=== PATIENT | male | born 1975 | race Caucasian/White ===

== ENCOUNTER 2018-04-05 10:41 | Emergency (ER) | payer SELFPAY ==
--- NOTE | 2018-04-05 11:22 | RAD ---
PA CHEST: Date: 04/05/18 HISTORY: Weakness. FINDINGS: Lung beyer are clear. Heart and mediastinum appear normal. Vasculature is normal. IMPRESSION: Unremarkable chest. POS: [facility]
[2018-04-05 11:26] LABS: #Eosinphils 0.1 thou/uL (0.0-0.7); #Lymphocytes 1.5 thou/uL (1.20-3.40); #Monocytes 0.8 thou/uL (0.11-0.59); %Basophils 0.2 % (0.0-1.0); %Eosinophils 0.8 % (0.0-10.0); %Lymphocytes 9.5 % (21.0-51.0); %Monocytes 5.1 % (0.0-10.0); %Neutrophils 84.5 % (42.0-75.0); Hemoglobin 15.9 g/dL (14.0-18.0); Mean Corpuscular HGB CONC 33.9 g/dL (32.0-36.0); Mean Corpuscular Hemoglobin 31.6 pg (27.0-31.0); Mean Corpuscular Volume 93.3 fl (80.0-94.0); Mean Platelet Volume 6.2 fL (7.4-10.4); Platelet Count 302 thou/uL (130-400); RBC Distribution Width 12.2 % (11.5-14.5); Red Blood Cell (RBC) Count 5.02 mill/uL (4.70-6.10); White Blood Cell (WBC) Count 15.4 thou/uL (4.8-10.8)
[2018-04-05 11:52] LABS: ALT (SGPT) 23 U/L (8-55); AST (SGOT) 17 U/L (5-34); Albumin 4.7 g/dL (3.5-5.0); Alkaline Phosphatase 56 U/L (40-150); Anion Gap 12 mmol/L (10-20); BUN (Urea Nitrogen) 11 mg/dL (8.9-20.6); Bilirubin, Total 0.8 mg/dL (0.2-1.2); Calc. Creatinine Clearance 0 mL/min (70-130); Calcium 9.5 mg/dL (7.8-10.44); Carbon Dioxide 25 mmol/L (22-29); Chloride 106 mmol/L (98-107); Estimated GFR-MDRD 85; Globulin 2.9 g/dL (2.4-3.5); Glucose 94 mg/dL (70-105); Potassium 4.2 mmol/L (3.5-5.1); Protein, Total 7.6 g/dL (6.0-8.3); Sodium 139 mmol/L (136-145)
[2018-04-05 12:11] LABS: CKMB 0.5 ng/mL (0-6.6); Troponin I Less than 0.010 ng/mL (< 0.028)
[2018-04-05] MEDS ORDERED: Ketorolac Tromethamine 30 MG/ML VIAL ONE (13:25)
[2018-04-05] MEDS ORDERED: Acetaminophen 500 MG TAB ONE (13:25)
--- NOTE | 2018-04-05 13:45 | CT ---
CT HEAD WITHOUT CONTRAST: Date: 04/05/18 Multiple axial tomograms obtained through the head without IV enhancement. HISTORY: Weakness and dizziness. FINDINGS: Ventricles have normal size and position. No evidence of intracranial mass, hemorrhage, or infarct id entified. IMPRESSION: No acute abnormality. POS: [id number]
== END 2018-04-05 14:10 | disposition home or self-care (01) ==
LOC: ERS 10:41
DX: E86.0 Dehydration (principal); R51 Headache; F17.210 Nicotine dependence, cigarettes, uncomplicated
CPT/HCPCS: 70450; 71045; 80053; 82553; 84484; 85025; 93005; 96361; 96374; J1885

== ENCOUNTER 2023-07-03 15:31 | Inpatient (IN) | payer OTHER, SELFPAY ==
[~2023-07-03 15:31] MED LIST: Iopamidol-370 76% 500 ML MDV (1 ML CHARGE) ONE
[2023-07-03] MEDS ORDERED: Ondansetron PF 4 MG/2 ML Vial ONE ×2 (15:43→19:07)
[2023-07-03] MEDS ORDERED: CEFAZOLIN 2 GM VIAL ONE (15:43)
[2023-07-03] MEDS ORDERED: Morphine 4 MG/ML VIAL ONE (15:43)
[2023-07-03] MEDS ORDERED: Boostrix 0.5 ML (Tdap) VIAL (>/=7 yrs of age) ONE (15:43)
[2023-07-03 15:59] LABS: #Basophils 0.1 thou/uL (0.0-0.2); #Eosinphils 0.2 thou/uL (0.0-0.7); #Monocytes 1.1 thou/uL (0.11-0.59); #Neutrophils 12.7 thou/uL (1.40-6.50); %Basophils 0.6 % (0.0-1.0); %Lymphocytes 8.8 % (21.0-51.0); %Neutrophils 81.6 % (42.0-75.0); Hemoglobin 14.3 g/dL (14.0-18.0); Mean Corpuscular HGB CONC 32.5 g/dL (32.0-36.0); Mean Corpuscular Hemoglobin 30.8 pg (27.0-31.0); Mean Corpuscular Volume 94.6 fl (78.0-98.0); Mean Platelet Volume 8.9 fL (7.4-10.4); Platelet Count 270 10x3/uL (130-400); RBC Distribution Width 13.7 % (11.5-14.5); Red Blood Cell (RBC) Count 4.65 mill/uL (4.70-6.10); White Blood Cell (WBC) Count 15.6 10x3/uL (4.8-10.8)
[2023-07-03 16:20] LABS: ALT (SGPT) 36 U/L (8-55); AST (SGOT) 22 U/L (5-34); Albumin 3.8 g/dL (3.5-5.0); Alkaline Phosphatase 68 U/L (40-110); Anion Gap 12 mmol/L (10-20); BUN (Urea Nitrogen) 12 mg/dL (8.9-20.6); Bilirubin, Total 0.2 mg/dL (0.2-1.2); Calc. Creatinine Clearance 0 mL/min (70-130); Calcium 8.7 mg/dL (7.8-10.44); Carbon Dioxide 22 mmol/L (22-29); Chloride 110 mmol/L (98-107); Estimated GFR 98; Globulin 2.8 g/dL (2.4-3.5); Glucose 95 mg/dL (70-105); Potassium 4.1 mmol/L (3.5-5.1); Protein, Total 6.6 g/dL (6.0-8.3); Sodium 140 mmol/L (136-145)
[2023-07-03] MEDS ORDERED: fentaNYL 50 mcg/mL 1 mL Vial ONE (16:33)
[2023-07-03] MEDS ORDERED: HYDROmorphone 0.5 MG/0.5 ML SYRINGE ONE ×2 (16:44→16:55)
[2023-07-03] MEDS ORDERED: Ipratropium/Albuterol 3 ML NEB NEB PRN (16:46)
[2023-07-03] MEDS ORDERED: Ondansetron PF 4 MG/2 ML Vial IVP PRN (16:46)
[2023-07-03] MEDS ORDERED: Morphine 2 MG/ML VIAL SLOW IVP PRN (16:46)
[2023-07-03] MEDS ORDERED: Morphine 4 MG/ML VIAL SLOW IVP PRN (16:46)
[2023-07-03] MEDS ORDERED: Sodium Chloride 0.9% 1,000 ML IV SCH (17:00)
[2023-07-03] MEDS ORDERED: traMADol HCl 50 MG TAB PO PRN (17:21)
[2023-07-03] MEDS ORDERED: CEFAZOLIN 2 GM in Sodium Chloride 0.9% 100 ML IVPB SCH (17:30)
[2023-07-03] MEDS ORDERED: Fentanyl 250 MCG/5 ML VIAL ONE (18:31)
[2023-07-03] MEDS ORDERED: Dexmedetomidine 200 MCG/2 ML VIAL ONE (18:31)
[2023-07-03] MEDS ORDERED: SUGAMMADEX SODIUM 200 MG/2 ML VIAL ONE (18:31)
[2023-07-03] MEDS ORDERED: Dexamethasone 20 MG/5 ML VIAL ONE (19:07)
[2023-07-03] MEDS ORDERED: Lidocaine 1% PF 5 ML VIAL ONE (19:07)
[2023-07-03] MEDS ORDERED: Glycopyrrolate 0.2 MG/ML 5 ML SYRINGE ONE (19:07)
[2023-07-03] MEDS ORDERED: PROPOFOL 200 MG/20 ML VIAL ONE (19:07)
[2023-07-03] MEDS ORDERED: Succinylcholine 200 MG/10 ml SYRINGE FS ONE (19:07)
[2023-07-03] MEDS ORDERED: NEOSTIGMINE 3 MG/3 ML SYR 3 MG/3 ML SYRINGE ONE (19:07)
[2023-07-03] MEDS ORDERED: Metoclopramide HCl 10 MG/2 ML VIAL ONE (19:07)
[2023-07-03] MEDS ORDERED: Rocuronium Bromide 10 MG/ML (10ML VIAL) ONE (19:07)
[2023-07-03] MEDS ORDERED: Vancomycin 1 GM VIAL ONE (19:44)
[2023-07-03] MEDS ORDERED: CEFAZOLIN 1 GM VIAL SLOW IVP SCH (22:00)
[2023-07-03] MEDS: traMADol HCl 50 MG TAB PO SCH ×2 (22:24→23:02)
[2023-07-03] MEDS: Acetaminophen 325 MG TAB PO SCH ×2 (22:25→23:02)
[2023-07-03] MEDS: Sodium Chloride 0.9% 1,000 ML IV SCH (22:34)
[2023-07-03] MEDS: Famotidine/PF 20 mg/2ml Vial SLOW IVP SCH (22:34)
[2023-07-03] MEDS: CEFAZOLIN 2 GM in Sodium Chloride 0.9% 100 ML IVPB SCH (22:35)
[2023-07-03] MEDS: Famotidine 20 MG TAB PO SCH (22:35)
[2023-07-03 22:53] VITALS: BMI 39.6
[2023-07-04] MEDS: Sodium Chloride 0.9% 1,000 ML IV SCH ×2 (01:30→05:11)
[2023-07-04 02:05] LABS: Amphetamine Not Detected (NotDetected); Barbiturates Screen Not Detected (NotDetected); Benzodiazepine Screen Not Detected (NotDetected); Cocaine Metabolite Screen Not Detected (NotDetected); Methadone Not Detected (NotDetected); Methamphetamine Detected (NotDetected); Opiate Screen Detected (NotDetected); Oxycodone Screen Not Detected (NotDetected); Phencyclidine (PCP) Not Detected (NotDetected); THC/Cannabinoid Screen Detected (NotDetected); Tricyclic Screen Not Detected (NotDetected)
[2023-07-04] MEDS: traMADol HCl 50 MG TAB PO SCH ×4 (05:07→23:03)
[2023-07-04] MEDS: Acetaminophen 325 MG TAB PO SCH ×4 (05:07→23:03)
[2023-07-04] MEDS: CEFAZOLIN 2 GM in Sodium Chloride 0.9% 100 ML IVPB SCH ×3 (05:09→21:08)
[2023-07-04 06:34] LABS: #Monocytes 0.9 thou/uL (0.11-0.59); #Neutrophils 17.5 thou/uL (1.40-6.50); %Basophils 0.1 % (0.0-1.0); %Lymphocytes 5.1 % (21.0-51.0); %Monocytes 4.8 % (0.0-10.0); %Neutrophils 89.5 % (42.0-75.0); Hematocrit 37.9 % (42.0-52.0); Hemoglobin 12.1 g/dL (14.0-18.0); Mean Corpuscular HGB CONC 31.9 g/dL (32.0-36.0); Mean Corpuscular Hemoglobin 30.3 pg (27.0-31.0); Mean Corpuscular Volume 94.8 fl (78.0-98.0); Mean Platelet Volume 9.5 fL (7.4-10.4); Platelet Count 239 10x3/uL (130-400); RBC Distribution Width 13.7 % (11.5-14.5); White Blood Cell (WBC) Count 19.5 10x3/uL (4.8-10.8)
[2023-07-04 06:52] LABS: Anion Gap 12 mmol/L (10-20); BUN (Urea Nitrogen) 7 mg/dL (8.9-20.6); Calc. Creatinine Clearance 159 mL/min (70-130); Calcium 8.2 mg/dL (7.8-10.44); Carbon Dioxide 21 mmol/L (22-29); Chloride 108 mmol/L (98-107); Estimated GFR 98; Glucose 161 mg/dL (70-105); Potassium 4.2 mmol/L (3.5-5.1); Sodium 137 mmol/L (136-145)
[2023-07-04] MEDS: Famotidine 20 MG TAB PO SCH ×2 (08:29→21:06)
[2023-07-04] MEDS: Famotidine/PF 20 mg/2ml Vial SLOW IVP SCH ×2 (08:29→21:07)
[2023-07-04] MEDS ORDERED: Cyclobenzaprine 10 MG TAB PO PRN (09:51)
[2023-07-04] MEDS ORDERED: Ketorolac Tromethamine 30 MG/ML VIAL IVP SCH (10:00)
[2023-07-04] MEDS: Ketorolac Tromethamine 30 MG/ML VIAL IVP SCH ×3 (12:47→23:03)
[2023-07-05] MEDS: Acetaminophen 325 MG TAB PO SCH ×2 (06:21→11:55)
[2023-07-05] MEDS: Ketorolac Tromethamine 30 MG/ML VIAL IVP SCH (06:21)
[2023-07-05] MEDS: CEFAZOLIN 2 GM in Sodium Chloride 0.9% 100 ML IVPB SCH (06:21)
[2023-07-05] MEDS: traMADol HCl 50 MG TAB PO SCH ×2 (06:21→11:55)
[2023-07-05 07:35] LABS: #Eosinphils 0.1 thou/uL (0.0-0.7); #Monocytes 1.6 thou/uL (0.11-0.59); #Neutrophils 13.8 thou/uL (1.40-6.50); %Basophils 0.2 % (0.0-1.0); %Eosinophils 0.3 % (0.0-10.0); %Lymphocytes 12.5 % (21.0-51.0); %Monocytes 8.9 % (0.0-10.0); %Neutrophils 77.4 % (42.0-75.0); Hemoglobin 11.3 g/dL (14.0-18.0); Mean Corpuscular HGB CONC 32.3 g/dL (32.0-36.0); Mean Corpuscular Hemoglobin 30.8 pg (27.0-31.0); Mean Corpuscular Volume 95.4 fl (78.0-98.0); Mean Platelet Volume 9.5 fL (7.4-10.4); Platelet Count 240 10x3/uL (130-400); RBC Distribution Width 13.9 % (11.5-14.5); Red Blood Cell (RBC) Count 3.67 mill/uL (4.70-6.10); White Blood Cell (WBC) Count 17.8 10x3/uL (4.8-10.8)
[2023-07-05] MEDS: Famotidine 20 MG TAB PO SCH (09:23)
[2023-07-05] MEDS ORDERED: Cephalexin 250 MG CAP PO SCH (12:00)
[2023-07-05 12:56] VITALS: BP 104/69; TEMP 97.9
== END 2023-07-05 15:25 | disposition home or self-care (01) | DRG 494 ==
LOC: ERS 15:31 → SURG A 16:48
PROVIDERS: ADMIT Student in an Organized Health Care Education/Training Program; ATTEND Student in an Organized Health Care Education/Training Program
PROC: 0PSF04Z Reposition Right Humeral Shaft with Internal Fixation Device, Open Approach (ICD-10-PCS; principal; 2023-07-03)
DX: S42.401B Unspecified fracture of lower end of right humerus, initial encounter for open fracture (principal); F17.210 Nicotine dependence, cigarettes, uncomplicated; V49.88XA Car occupant (driver) (passenger) injured in other specified transport accidents, initial encounter
CPT/HCPCS: 36415; 70450; 71045; 71260; 72125; 72170; 74177; 80048; 80053; 80306; 83605; 85025; 86850; 86900; 86901; 90715; 93005; 96374; 96375; C1713; G0390; J1100; J1170; J1885; J2270; J2272; J2405; J2704; J2765; J3010; J3370; J3490; J7050; Q9967; S0028

== ENCOUNTER 2023-07-07 11:23 | Emergency (ER) | payer SELFPAY | END 2023-07-07 12:23 | disposition home or self-care (01) | LOC: ERS 11:23 | DX: R60.0 Localized edema (principal); F17.210 Nicotine dependence, cigarettes, uncomplicated | CPT/HCPCS: 99283 ==

== ENCOUNTER 2023-07-26 10:56 | Emergency (ER) | payer SELFPAY ==
[2023-07-26] MEDS ORDERED: Cefepime 2 GM VIAL ONE (11:34)
[2023-07-26] MEDS ORDERED: Vancomycin 1.5 GRAM/300 ML BAG 1.5 GM in Premix Bag 1 BAG IVPB SCH (11:45)
[2023-07-26 11:47] LABS: #Basophils 0.1 thou/uL (0.0-0.2); #Eosinphils 0.2 thou/uL (0.0-0.7); #Monocytes 0.7 thou/uL (0.11-0.59); #Neutrophils 5.1 thou/uL (1.40-6.50); %Eosinophils 2.1 % (0.0-10.0); %Lymphocytes 23.4 % (21.0-51.0); %Monocytes 8.4 % (0.0-10.0); %Neutrophils 64.1 % (42.0-75.0); Hematocrit 47.1 % (42.0-52.0); Hemoglobin 15.1 g/dL (14.0-18.0); Mean Corpuscular HGB CONC 32.1 g/dL (32.0-36.0); Mean Corpuscular Volume 93.5 fl (78.0-98.0); Mean Platelet Volume 9.5 fL (7.4-10.4); Platelet Count 357 10x3/uL (130-400); RBC Distribution Width 13.8 % (11.5-14.5); Red Blood Cell (RBC) Count 5.04 mill/uL (4.70-6.10)
[2023-07-26 13:13] LABS: Calcium 9.1 mg/dL (7.8-10.44); Chloride 109 mmol/L (98-107); Potassium 4.7 mmol/L (3.5-5.1); Sodium 136 mmol/L (136-145)
[2023-07-26 13:14] LABS: Globulin 3.2 g/dL (2.4-3.5); Glucose 88 mg/dL (70-105); Protein, Total 7.2 g/dL (6.0-8.3)
[2023-07-26 13:15] LABS: Anion Gap 13 mmol/L (10-20); Carbon Dioxide 19 mmol/L (22-29)
[2023-07-26 13:16] LABS: Bilirubin, Total 0.4 mg/dL (0.2-1.2)
[2023-07-26 13:17] LABS: Alkaline Phosphatase 76 U/L (40-110); Calc. Creatinine Clearance 0 mL/min (70-130); Estimated GFR 109
[2023-07-26 13:18] LABS: BUN (Urea Nitrogen) 12 mg/dL (8.9-20.6)
[2023-07-26 13:19] LABS: AST (SGOT) 20 U/L (5-34)
[2023-07-26 13:20] LABS: ALT (SGPT) 27 U/L (8-55)
== END 2023-07-26 15:55 | disposition home or self-care (01) ==
LOC: ERS 10:56
DX: T81.41XA Infection following a procedure, superficial incisional surgical site, initial encounter (principal); F17.210 Nicotine dependence, cigarettes, uncomplicated
CPT/HCPCS: 36415; 80053; 83605; 85025; 87040; 96365; 96367; J0692; J3370

== ENCOUNTER 2024-12-06 19:37 | Emergency (ER) | payer SELFPAY ==
[2024-12-06 20:13] LABS: #Basophils 0.06 10x3/uL (0.0-0.2); %Basophils 0.7 % (0.0-1.0); %Eosinophils 1.2 % (0.0-10.0); %Lymphocytes 20.1 % (21.0-51.0); %Monocytes 7.5 % (0.0-10.0); %Neutrophils 70.1 % (42.0-75.0); Hematocrit 47.7 % (42.0-52.0); Hemoglobin 15.7 g/dL (14.0-18.0); Mean Corpuscular HGB CONC 32.9 g/dL (32.0-36.0); Mean Corpuscular Hemoglobin 30.2 pg (27.0-31.0); Mean Corpuscular Volume 91.7 fL (78.0-98.0); Mean Platelet Volume 9.3 fL (7.4-10.4); Platelet Count 258 10x3/uL (130-400); RBC Distribution Width 13.2 % (11.5-14.5)
[2024-12-06 20:27] LABS: ALT (SGPT) 29 U/L (8-55); AST (SGOT) 17 U/L (5-34); Alkaline Phosphatase 63 U/L (40-110); Anion Gap 12 mmol/L (10-20); BUN (Urea Nitrogen) 12 mg/dL (8.9-20.6); Bilirubin, Total 0.5 mg/dL (0.2-1.2); Calc. Creatinine Clearance 0 mL/min (70-130); Calcium 8.9 mg/dL (7.8-10.44); Carbon Dioxide 24 mmol/L (22-29); Chloride 108 mmol/L (98-107); Estimated GFR 92; Globulin 3.2 g/dL (2.4-3.5); Glucose 121 mg/dL (70-105); Potassium 3.7 mmol/L (3.5-5.1); Protein, Total 7.2 g/dL (6.0-8.3); Sodium 140 mmol/L (136-145)
[2024-12-06 20:32] LABS: Troponin I Less than 0.010 ng/mL (< 0.028)
== END 2024-12-06 21:37 | disposition home or self-care (01) ==
LOC: ERS 19:37
DX: R42 Dizziness and giddiness (principal); H51.8 Other specified disorders of binocular movement; F17.210 Nicotine dependence, cigarettes, uncomplicated; Z55.6 Problems related to health literacy
CPT/HCPCS: 36415; 71045; 80053; 83735; 84443; 84484; 85025; 85379; 93005